=== PATIENT | female | born 1975 | race Caucasian/White ===

== ENCOUNTER 2017-01-17 09:17 | Outpatient (CLI) | payer OTHER | END 2017-01-17 21:58 | disposition home or self-care (01) | LOC: MLB 09:17 | PROVIDERS: ATTEND Family Medicine | DX: R42 Dizziness and giddiness (principal) ==

== ENCOUNTER 2020-11-17 09:59 | Outpatient (CLI) | payer OTHER | END 2020-11-17 20:47 | disposition home or self-care (01) | LOC: MRD 09:59 | PROVIDERS: ATTEND Family Medicine | DX: M79.645 Pain in left finger(s) (principal) | CPT/HCPCS: 73140 ==

== ENCOUNTER 2021-04-20 09:41 | Outpatient (CLI) | payer OTHER ==
[2021-04-20 10:19] LABS: BASOPHILS # (AUTO) 0.1 K/uL (0.00-0.22); BASOPHILS % (AUTO) 1.2 % (0.0-2.0); EOSINOPHILS % (AUTO) 0.8 % (0.0-4.0); HEMATOCRIT 31.8 % (36-48); HEMOGLOBIN 9.6 g/dL (12.0-16.0); LYMPHOCYTES # (AUTO) 1.3 K/uL (2.5-16.5); LYMPHOCYTES % (AUTO) 25.9 % (20.5-51.1); MEAN CORPUSCULAR HEMOGLOBIN 21 pg (27-31); MEAN CORPUSCULAR HGB CONC 30 g/dL (33-37); MONOCYTES # (AUTO) 0.3 K/uL (0.8-1.0); MONOCYTES % (AUTO) 6.6 % (1.7-9.3); NEUTROPHILS # (AUTO) 3.4 K/uL (1.8-7.7); NEUTROPHILS % (AUTO) 65.5 % (42.2-75.2); PLATELET COUNT (AUTO) 364 K/uL (140-450); RED BLOOD CELL COUNT(AUTO) 4.61 MIL/uL (4.20-5.40); RED CELL DISTRIBUTION WIDTH 20.4 % (11.6-13.7); WHITE BLOOD COUNT (AUTO) 5.2 K/uL (4.8-10.8)
[2021-04-20 10:41] LABS: ALBUMIN 3.8 g/dL (3.4-5.0); ANION GAP 15.6 (8-16); CARBON DIOXIDE 22.5 mmol/L (21-32); CREATININE 0.7 mg/dL (0.6-1.3); POTASSIUM 4.1 mmol/L (3.5-5.1); THYROID STIMULATING HORMONE 1.23 uIU/mL (0.34-3.74); TOTAL BILIRUBIN 0.4 mg/dL (0.0-1.0)
[2021-04-21 09:06] LABS: ESTRADIOL SERUM 66.1 pg/mL (.); FOLLICLE STIMULATING HORMONE 5.8 mIU/mL (.); TRIIODOTHYRONINE 118 ng/dL (71-180)
[2021-04-21 12:07] LABS: T4 (THYROXINE) 8.5 ug/dL (4.5-12.0); THYROID PEROXIDASE (TPO) AB <9 IU/mL (0-34)
== END 2021-04-20 20:23 | disposition home or self-care (01) ==
LOC: MLB 09:41
DX: R53.83 Other fatigue (principal)
CPT/HCPCS: 36415; 80053; 82306; 82607; 82670; 83001; 84403; 84436; 84443; 84480; 85025; 86376

== ENCOUNTER 2021-04-27 11:42 | Outpatient (CLI) | payer OTHER | END 2021-04-27 19:53 | disposition home or self-care (01) | LOC: MLB 11:42 | PROVIDERS: ATTEND Obstetrics & Gynecology | DX: E03.9 Hypothyroidism, unspecified (principal) | CPT/HCPCS: 36415; 84481 ==

== ENCOUNTER 2023-10-04 13:47 | Emergency (ER) | payer OTHER ==
[~2023-10-04] VITALS: Ht 162.6 cm; Wt 79.8 kg
[2023-10-04 13:56] VITALS: BP 182/107; PULSE 73; RESP 16; TEMP 97.2; O2SAT 97
[2023-10-04] MEDS ORDERED: MECLIZINE 25 MG TAB PO ONE (14:20)
[2023-10-04] MEDS ORDERED: NACL 0.9% 1,000 ML IV ONE (14:20)
[2023-10-04 14:29] LABS: BASOPHILS # (AUTO) 0.1 K/uL (0.00-0.22); BASOPHILS % (AUTO) 1.4 % (0.0-2.0); EOSINOPHILS % (AUTO) 0.8 % (0.0-4.0); HEMATOCRIT 28.9 % (36-48); HEMOGLOBIN 8.6 g/dL (12.0-16.0); LYMPHOCYTES # (AUTO) 1.2 K/uL (2.5-16.5); LYMPHOCYTES % (AUTO) 19.5 % (20.5-51.1); MEAN CORPUSCULAR HEMOGLOBIN 19 pg (27-31); MEAN CORPUSCULAR HGB CONC 30 g/dL (33-37); MEAN CORPUSCULAR VOLUME 64.6 fL (80-94); MONOCYTES # (AUTO) 0.5 K/uL (0.8-1.0); MONOCYTES % (AUTO) 8.5 % (1.7-9.3); NEUTROPHILS # (AUTO) 4.4 K/uL (1.8-7.7); NEUTROPHILS % (AUTO) 69.8 % (42.2-75.2); PLATELET COUNT (AUTO) 442 K/uL (140-450); RED BLOOD CELL COUNT(AUTO) 4.47 MIL/uL (4.20-5.40); RED CELL DISTRIBUTION WIDTH 20.4 % (11.6-13.7); WHITE BLOOD COUNT (AUTO) 6.3 K/uL (4.8-10.8)
[2023-10-04 14:44] LABS: ALANINE AMINOTRANSFERASE 20 U/L (12-78); ALBUMIN 3.6 g/dL (3.4-5.0); ALKALINE PHOSPHATASE 104 U/L (50-136); ANION GAP 14.2 (8-16); ASPARTATE AMINOTRANSFERASE 28 U/L (15-37); CALCIUM 8.2 mg/dL (8.5-10.1); CARBON DIOXIDE 25.8 mmol/L (21-32); CHLORIDE 103 mmol/L (98-107); CREATININE 0.8 mg/dL (0.6-1.3); GFR ARICAN-AMERICAN 98 mL/min (>90); GFR NON ARICAN-AMERICAN 81 mL/min (>90); GLUCOSE 100 mg/dL (74-106); LIPASE 20 U/L (16-77); MAGNESIUM 1.7 mg/dL (1.8-2.4); PHOSPHORUS 3.2 mg/dL (2.5-4.9); SODIUM SERUM 139 mmol/L (136-145); TOTAL BILIRUBIN 0.3 mg/dL (0.0-1.0); TOTAL PROTEIN, SERUM 7.9 g/dL (6.4-8.2); UREA NITROGEN, BLOOD 7 mg/dL (7-18)
[2023-10-04 15:00] LABS: POIKILOCYTOSIS 3+
[2023-10-04 15:01] LABS: ANISOCYTOSIS 2+; STOMATOCYTES 2+
[2023-10-04] MEDS ORDERED: AMLO5TAB PO (15:45)
[2023-10-04] MEDS ORDERED: MAGNESIUM OXIDE 400 MG TAB PO ONE (15:50)
[2023-10-04 16:38] VITALS: BP 131/82; PULSE 91; RESP 18; TEMP 97.2; O2SAT 98
== END 2023-10-04 16:36 | disposition home or self-care (01) ==
LOC: MED 13:47
DX: R20.2 Paresthesia of skin (principal); E83.42 Hypomagnesemia; I10 Essential (primary) hypertension; R77.9 Abnormality of plasma protein, unspecified; D50.9 Iron deficiency anemia, unspecified; Z79.899 Other long term (current) drug therapy
CPT/HCPCS: 36415; 71045; 80053; 83690; 83735; 84100; 84484; 85025; 93005; 96360; 99285; J7030; J8597; Q0092